=== PATIENT | female | born 1995 | race Hispanic/Latino ===

== ENCOUNTER 2021-03-11 06:54 | Emergency (ER) | payer SELFPAY ==
[~2021-03-11] VITALS: Ht 152.4 cm; Wt 74.8 kg
[2021-03-11] MEDS ORDERED: PEPCID20 MG PO (07:10)
[2021-03-11] MEDS ORDERED: PREDNISONE50 MG PO (07:10)
[2021-03-11] MEDS ORDERED: BENADRYL25 M1 PO (07:10)
[2021-03-11] MEDS ORDERED: PREDNISONE 20 MG TAB PO ONE (07:15)
[2021-03-11] MEDS ORDERED: DIPHENHYDRAMINE HCL 25 MG CAP PO ONE (07:15)
[2021-03-11] MEDS ORDERED: PREDNISONE 20 MG TAB ONE (07:23)
== END 2021-03-11 07:18 | disposition home or self-care (01) ==
LOC: ER 07:00
DX: L50.9 Urticaria, unspecified (principal)
CPT/HCPCS: 99283; J7512